=== PATIENT | female | born 1955 | race Hispanic/Latino ===

== ENCOUNTER 2021-02-15 19:15 | Inpatient (IN) | payer MEDICARE ==
[~2021-02-15] VITALS: Ht 149.9 cm; Wt 81.4 kg
[2021-02-15 21:08] LABS: BASOPHILS % (AUTO) 0.5 % (0.0-5.0); EOSINOPHILS % (AUTO) 1.2 % (0.0-8.0); HEMATOCRIT 35.6 % (36-48); LYMPHOCYTES % (AUTO) 16.9 % (21.0-51.0); MEAN CORPUSCULAR HEMOGLOBIN 29.4 pg (27.0-33.0); MEAN CORPUSCULAR HGB CONC 32.9 g/dL (32.0-36.0); MEAN CORPUSCULAR VOLUME 89.4 fL (79-99); MONOCYTES % (AUTO) 8.5 % (3.0-13.0); NEUTROPHILS % (AUTO) 72.4 % (40.0-77.0); PLATELET COUNT (AUTO) 375 K/uL (130-400); RED BLOOD CELL COUNT(AUTO) 3.98 MIL/uL (4.00-5.50); RED CELL DISTRIBUTION WIDTH 12.8 % (11.0-15.5); WHITE BLOOD COUNT (AUTO) 11.1 K/uL (4.8-10.8)
[2021-02-15 21:10] LABS: APPEARANCE,URINE Clear (CLEAR); BILIRUBIN,URINE Negative (NEGATIVE); COLOR,URINE Yellow (YELLOW); GLUCOSE, URINE (UA) Negative (NEGATIVE); KETONES,URINE Negative (NEGATIVE); LEUKOCYTE ESTERASE ,URINE Negative (NEGATIVE); NITRATE,URINE Negative (NEGATIVE); OCCULT BLOOD,URINE Negative (NEGATIVE); PH,URINE 5.5 (5.0-8.0); PROTEIN,URINE 300 mg/dL (NEGATIVE); UROBILINOGEN,URINE 0.2 mg/dL (0.2-1.0)
[2021-02-15 21:12] LABS: CREATININE 2.4 mg/dL (0.5-1.5)
[2021-02-15 21:14] LABS: INR 1.08 (0.85-1.15); PROTHROMBIN TIME 11.7 SEC (9.6-11.6)
[2021-02-15 21:16] LABS: PARTIAL THROMBOPLASTIN TIME 23.6 SEC (26.3-35.5)
[2021-02-15 21:22] LABS: BILIRUBIN,TOTAL 0.3 mg/dL (0.2-1.0); MAGNESIUM 1.6 mg/dL (1.80-2.40); TOTAL PROTEIN, SERUM 8.1 g/dL (6.0-8.3)
[2021-02-15 21:31] LABS: BACTERIA,URINE Few /HPF (None Seen); MUCUS,URINE Few LPF (None Seen); SQUAMOUS EPITHELIAL CELL,UR Few /HPF (0-2)
[2021-02-15] MEDS ORDERED: CEFTRIAXONE SODIUM 1 GM ONE (23:18)
[2021-02-16] MEDS ORDERED: HYDRALAZINE HCL 20 MG/ML VIAL ONE (01:15)
[2021-02-16] MEDS: SODIUM CHLORIDE 0.9% 1000ML 1,000 ML IV SCH ×2 (02:45→12:45)
[2021-02-16] MEDS ORDERED: ONDANSETRON HCL 4 MG/2 ML VIAL IV PRN (02:45)
[2021-02-16] MEDS ORDERED: ACETAMINOPHEN 325 MG TAB PO PRN ×2 (02:45)
[2021-02-16] MEDS ORDERED: MORPHINE SULFATE 2 MG/ML 1ML SYG IV PRN (02:45)
[2021-02-16 04:00] VITALS: BP 166/78
[2021-02-16] MEDS ORDERED: CEFTRIAXONE SODIUM 1 GM IVP SCH ×2 (04:45→10:15)
[2021-02-16] MEDS ORDERED: SODIUM CHLORIDE 0.9% 1000ML 1,000 ML IV SCH (04:45)
[2021-02-16] MEDS ORDERED: CEFTRIAXONE SODIUM 1 GM ONE (04:49)
[2021-02-16] MEDS: MAGNESIUM 2GM PREMIX 50ML 50 ML IV PRN (04:53)
[2021-02-16] MEDS ORDERED: CEFAZOLIN SODIUM 1 GM VIAL IVP SCH (05:00)
[2021-02-16] MEDS ORDERED: CEFAZOLIN SODIUM 1 GM VIAL ONE (05:06)
[2021-02-16] MEDS ORDERED: MECLIZINE HCL 12.5 MG TABLET PO PRN (05:15)
[2021-02-16 05:53] LABS: HEMATOCRIT 35.2 % (36-48); MEAN CORPUSCULAR HEMOGLOBIN 29.5 pg (27.0-33.0); MEAN CORPUSCULAR HGB CONC 33.2 g/dL (32.0-36.0); MEAN CORPUSCULAR VOLUME 88.7 fL (79-99); PLATELET COUNT (AUTO) 374 K/uL (130-400); RED BLOOD CELL COUNT(AUTO) 3.97 MIL/uL (4.00-5.50); WHITE BLOOD COUNT (AUTO) 12.6 K/uL (4.8-10.8)
[2021-02-16 05:57] LABS: CREATININE 2.2 mg/dL (0.5-1.5); MAGNESIUM 1.6 mg/dL (1.80-2.40); POTASSIUM 4.1 mmol/L (3.5-5.1)
[2021-02-16 06:09] LABS: BAND NEUTROPHILS % (MANUAL) 2 % (0-2); BASOPHILS % (MANUAL) 1 % (0-2); EOSINOPHILS % (MANUAL) 1 % (1-6); LYMPHOCYTES % (MANUAL) 14 % (22-44); MONOCYTES % (MANUAL) 3 % (2-9); REACTIVE LYMPHOCYTES 4 % (0-0); SEGMENTED NEUTROPHILS % 75 % (40-70)
[2021-02-16 06:10] LABS: MAN.DIFF COMMENT-IMPRESSION MANUAL DIFFERENTIAL; PLATELET MORPHOLOGY COMMENT ADEQUATE
[2021-02-16 08:00] VITALS: BP 143/75
[2021-02-16] MEDS ORDERED: FAMOTIDINE/PF 20 MG/2 ML VIAL IV SCH (09:00)
[2021-02-16 10:50] LABS: HEMOGLOBIN A1C 8.6 % (4.0-6.0)
[2021-02-16] MEDS: INSULIN HUMULIN R 100 UNIT/ML 3ML SQ SCH ×3 (11:30→21:12)
[2021-02-16 12:17] VITALS: BP 168/95
[2021-02-16] MEDS ORDERED: VANCOMYCIN PROTOCOL PER PHARMACY IV SCH (13:30)
[2021-02-16] MEDS ORDERED: COMPOUND IV REFRIGERATED 1 EACH IVSOLN MISC PRN (13:30)
[2021-02-16] MEDS: CEFEPIME HCL 2 GM VIAL IVP SCH ×2 (14:31→21:46)
[2021-02-16] MEDS ORDERED: MONT10TA32 PO (14:54)
[2021-02-16] MEDS ORDERED: LOSA100T58 PO (14:54)
[2021-02-16] MEDS ORDERED: ATOR20TA65 PO (14:54)
[2021-02-16] MEDS ORDERED: INSU300I SQ (14:54)
[2021-02-16] MEDS ORDERED: TORS20TA4 PO (14:54)
[2021-02-16] MEDS ORDERED: INSU100V SQ (14:54)
[2021-02-16] MEDS ORDERED: SEMA1PEN3 SQ (14:54)
[2021-02-16] MEDS ORDERED: FENO160T16 PO (14:54)
[2021-02-16] MEDS ORDERED: CARV25TA PO (14:54)
[2021-02-16] MEDS ORDERED: BACL10TA PO (14:54)
[2021-02-16] MEDS ORDERED: ACET-3194 PO (14:54)
[2021-02-16] MEDS: VANCOMYCIN 1.25 GM in SODIUM CHLORIDE 0.9% 250 ML IV SCH (14:57)
[2021-02-16 16:00] VITALS: BP 182/89
[2021-02-16] MEDS ORDERED: ACETAMINOPHEN EXTENDED RELEASE 650 MG TABLET PO PRN (17:00)
[2021-02-16 19:40] VITALS: BP 155/65
[2021-02-17] VITALS (8 sets, daily range): BP systolic 149–181; BP diastolic 75–91
[2021-02-17 00:25] LABS: PROTEIN,URINE RANDOM 136.5 mg/dL (0-11.9)
[2021-02-17] MEDS: SODIUM CHLORIDE 0.9% 1000ML 1,000 ML IV SCH ×3 (02:58→17:46)
[2021-02-17 04:56] LABS: BASOPHILS % (AUTO) 0.8 % (0.0-5.0); EOSINOPHILS % (AUTO) 1.4 % (0.0-8.0); HEMATOCRIT 33.6 % (36-48); LYMPHOCYTES % (AUTO) 15.8 % (21.0-51.0); MEAN CORPUSCULAR HEMOGLOBIN 28.9 pg (27.0-33.0); MEAN CORPUSCULAR HGB CONC 32.1 g/dL (32.0-36.0); MEAN CORPUSCULAR VOLUME 89.8 fL (79-99); MONOCYTES % (AUTO) 13.1 % (3.0-13.0); NEUTROPHILS % (AUTO) 68.6 % (40.0-77.0); PLATELET COUNT (AUTO) 325 K/uL (130-400); RED BLOOD CELL COUNT(AUTO) 3.74 MIL/uL (4.00-5.50); RED CELL DISTRIBUTION WIDTH 13.2 % (11.0-15.5); WHITE BLOOD COUNT (AUTO) 9.1 K/uL (4.8-10.8)
[2021-02-17] MEDS: CEFEPIME HCL 2 GM VIAL IVP SCH ×3 (05:05→20:38)
[2021-02-17 05:11] LABS: ALBUMIN 3.2 g/dL (3.5-5.0); BILIRUBIN,TOTAL 0.2 mg/dL (0.2-1.0); CREATININE 2.3 mg/dL (0.5-1.5); POTASSIUM 4.2 mmol/L (3.5-5.1); TOTAL PROTEIN, SERUM 6.9 g/dL (6.0-8.3)
[2021-02-17] MEDS: INSULIN HUMULIN R 100 UNIT/ML 3ML SQ SCH ×4 (06:51→20:39)
[2021-02-17] MEDS: ATORVASTATIN CALCIUM 20 MG TABLET PO SCH (09:17)
[2021-02-17] MEDS: FAMOTIDINE/PF 20 MG/2 ML VIAL IV SCH (09:17)
[2021-02-17] MEDS: LOSARTAN 100 MG TABLET PO SCH (09:17)
[2021-02-17] MEDS: MONTELUKAST SODIUM 10 MG TAB PO SCH (09:17)
[2021-02-17] MEDS: TORSEMIDE 20 MG TAB PO SCH (09:17)
[2021-02-17] MEDS: FENOFIBRATE 160 MG PO SCH (09:18)
[2021-02-17] MEDS ORDERED: CARVEDILOL 25 MG TABLET PO ONE (22:25)
[2021-02-17] MEDS ORDERED: CARVEDILOL 12.5 MG TABLET PO ONE (22:30)
[2021-02-18] MEDS: SODIUM CHLORIDE 0.9% 1000ML 1,000 ML IV SCH (02:34)
[2021-02-18 03:49] VITALS: BP 149/71
[2021-02-18] MEDS: CEFEPIME HCL 2 GM VIAL IVP SCH ×3 (04:13→20:39)
[2021-02-18 05:41] LABS: BASOPHILS % (AUTO) 0.7 % (0.0-5.0); EOSINOPHILS % (AUTO) 3.1 % (0.0-8.0); HEMATOCRIT 30.4 % (36-48); LYMPHOCYTES % (AUTO) 17.1 % (21.0-51.0); MEAN CORPUSCULAR HEMOGLOBIN 29.3 pg (27.0-33.0); MEAN CORPUSCULAR HGB CONC 32.2 g/dL (32.0-36.0); MONOCYTES % (AUTO) 13.3 % (3.0-13.0); NEUTROPHILS % (AUTO) 65.4 % (40.0-77.0); PLATELET COUNT (AUTO) 263 K/uL (130-400); RED BLOOD CELL COUNT(AUTO) 3.34 MIL/uL (4.00-5.50); RED CELL DISTRIBUTION WIDTH 13.1 % (11.0-15.5); WHITE BLOOD COUNT (AUTO) 8.1 K/uL (4.8-10.8)
[2021-02-18 06:00] LABS: CREATININE 2.6 mg/dL (0.5-1.5); MAGNESIUM 1.8 mg/dL (1.80-2.40); POTASSIUM 4.3 mmol/L (3.5-5.1)
[2021-02-18] MEDS: INSULIN HUMULIN R 100 UNIT/ML 3ML SQ SCH ×7 (06:10→20:41)
[2021-02-18] MEDS: HEPARIN SODIUM 5000UNIT/ML 1ML VIAL SQ SCH ×3 (06:12→20:40)
[2021-02-18] MEDS: INSULIN GLARGINE 100 UNITS/ML 10 ML VIAL SQ SCH (06:52)
[2021-02-18 07:00] VITALS: BP 149/75
[2021-02-18] MEDS: FENOFIBRATE 160 MG PO SCH (10:30)
[2021-02-18] MEDS: FAMOTIDINE/PF 20 MG/2 ML VIAL IV SCH (10:30)
[2021-02-18] MEDS: LOSARTAN 100 MG TABLET PO SCH (10:30)
[2021-02-18] MEDS: TORSEMIDE 20 MG TAB PO SCH (10:30)
[2021-02-18] MEDS: MONTELUKAST SODIUM 10 MG TAB PO SCH (10:30)
[2021-02-18] MEDS: ATORVASTATIN CALCIUM 20 MG TABLET PO SCH (10:30)
[2021-02-18 11:45] VITALS: BP 160/78
[2021-02-18] MEDS: VANCOMYCIN 1.25 GM in SODIUM CHLORIDE 0.9% 250 ML IV SCH (13:48)
[2021-02-18] MEDS: MAGNESIUM 2GM PREMIX 50ML 50 ML IV PRN (15:22)
[2021-02-18 16:00] VITALS: BP 168/86
[2021-02-18 20:10] VITALS: BP 179/80
[2021-02-18] MEDS: CARVEDILOL 12.5 MG TABLET PO SCH ×2 (20:39→22:25)
[2021-02-18] MEDS ORDERED: HYDRALAZINE HCL 20 MG/ML VIAL IV SCH (22:30)
[2021-02-18] MEDS ORDERED: DiphenhydrAMINE HCL 50 MG/ML VIAL ONE (23:11)
[2021-02-18] MEDS ORDERED: HYDRALAZINE HCL 20 MG/ML VIAL ONE (23:12)
[2021-02-18 23:45] VITALS: BP 179/96
[2021-02-19] VITALS (7 sets, daily range): BP systolic 125–165; BP diastolic 69–94
[2021-02-19 00:37] LABS: CREATINE KINASE, TOTAL 87 U/L (21-232); MYOGLOBIN 121 ng/mL (10-92); TROPONIN I < 0.04 ng/mL (0.00-0.06)
[2021-02-19 05:32] LABS: BASOPHILS % (AUTO) 0.6 % (0.0-5.0); EOSINOPHILS % (AUTO) 2.4 % (0.0-8.0); LYMPHOCYTES % (AUTO) 13.8 % (21.0-51.0); MEAN CORPUSCULAR HEMOGLOBIN 28.4 pg (27.0-33.0); MEAN CORPUSCULAR HGB CONC 32.4 g/dL (32.0-36.0); MEAN CORPUSCULAR VOLUME 87.5 fL (79-99); MONOCYTES % (AUTO) 12.5 % (3.0-13.0); NEUTROPHILS % (AUTO) 70.4 % (40.0-77.0); PLATELET COUNT (AUTO) 303 K/uL (130-400); RED BLOOD CELL COUNT(AUTO) 3.77 MIL/uL (4.00-5.50); RED CELL DISTRIBUTION WIDTH 12.7 % (11.0-15.5)
[2021-02-19] MEDS: CEFEPIME HCL 2 GM VIAL IVP SCH ×3 (05:34→20:39)
[2021-02-19] MEDS: HEPARIN SODIUM 5000UNIT/ML 1ML VIAL SQ SCH ×3 (05:35→20:53)
[2021-02-19 05:46] LABS: CREATININE 2.8 mg/dL (0.5-1.5); MAGNESIUM 2.3 mg/dL (1.80-2.40); POTASSIUM 4.3 mmol/L (3.5-5.1)
[2021-02-19] MEDS: INSULIN HUMULIN R 100 UNIT/ML 3ML SQ SCH ×7 (05:51→20:54)
[2021-02-19] MEDS: INSULIN GLARGINE 100 UNITS/ML 10 ML VIAL SQ SCH (06:17)
[2021-02-19] MEDS: FENOFIBRATE 160 MG PO SCH (08:32)
[2021-02-19] MEDS: FAMOTIDINE/PF 20 MG/2 ML VIAL IV SCH (09:14)
[2021-02-19] MEDS: MONTELUKAST SODIUM 10 MG TAB PO SCH (09:15)
[2021-02-19] MEDS: TORSEMIDE 20 MG TAB PO SCH (09:15)
[2021-02-19] MEDS: CARVEDILOL 12.5 MG TABLET PO SCH ×2 (09:15→20:40)
[2021-02-19] MEDS: LOSARTAN 100 MG TABLET PO SCH (09:15)
[2021-02-19] MEDS: ATORVASTATIN CALCIUM 20 MG TABLET PO SCH (09:15)
[2021-02-20 04:00] VITALS: BP 141/75
[2021-02-20] MEDS: CEFEPIME HCL 2 GM VIAL IVP SCH ×3 (05:14→21:08)
[2021-02-20] MEDS: HEPARIN SODIUM 5000UNIT/ML 1ML VIAL SQ SCH ×3 (05:19→21:17)
[2021-02-20 05:21] LABS: BASOPHILS % (AUTO) 0.7 % (0.0-5.0); EOSINOPHILS % (AUTO) 2.5 % (0.0-8.0); HEMATOCRIT 31.4 % (36-48); LYMPHOCYTES % (AUTO) 15.3 % (21.0-51.0); MEAN CORPUSCULAR HEMOGLOBIN 28.9 pg (27.0-33.0); MEAN CORPUSCULAR HGB CONC 32.5 g/dL (32.0-36.0); MONOCYTES % (AUTO) 14.2 % (3.0-13.0); NEUTROPHILS % (AUTO) 66.9 % (40.0-77.0); PLATELET COUNT (AUTO) 263 K/uL (130-400); RED BLOOD CELL COUNT(AUTO) 3.53 MIL/uL (4.00-5.50); RED CELL DISTRIBUTION WIDTH 12.9 % (11.0-15.5); WHITE BLOOD COUNT (AUTO) 9.1 K/uL (4.8-10.8)
[2021-02-20] MEDS: INSULIN HUMULIN R 100 UNIT/ML 3ML SQ SCH ×7 (05:25→21:00)
[2021-02-20 05:49] LABS: ALBUMIN 3.1 g/dL (3.5-5.0); BILIRUBIN,TOTAL 0.3 mg/dL (0.2-1.0); CREATININE 3.8 mg/dL (0.5-1.5); POTASSIUM 4.5 mmol/L (3.5-5.1); TOTAL PROTEIN, SERUM 7.1 g/dL (6.0-8.3)
[2021-02-20] MEDS: INSULIN GLARGINE 100 UNITS/ML 10 ML VIAL SQ SCH (06:32)
[2021-02-20 07:30] VITALS: BP 151/75
[2021-02-20] MEDS: FENOFIBRATE 160 MG PO SCH (08:00)
[2021-02-20] MEDS: TORSEMIDE 20 MG TAB PO SCH (10:20)
[2021-02-20] MEDS: ATORVASTATIN CALCIUM 20 MG TABLET PO SCH (10:21)
[2021-02-20] MEDS: CARVEDILOL 12.5 MG TABLET PO SCH ×2 (10:21→21:09)
[2021-02-20] MEDS: MONTELUKAST SODIUM 10 MG TAB PO SCH (10:21)
[2021-02-20] MEDS: LOSARTAN 100 MG TABLET PO SCH (10:21)
[2021-02-20] MEDS: FAMOTIDINE/PF 20 MG/2 ML VIAL IV SCH (10:22)
[2021-02-20 11:00] VITALS: BP 158/83
[2021-02-20] MEDS ORDERED: MORPHINE SULFATE 2 MG/ML 1ML SYG IVP SCH (13:00)
[2021-02-20 13:16] LABS: ALBUMIN 3.4 g/dL (3.5-5.0); BILIRUBIN,TOTAL 0.3 mg/dL (0.2-1.0); POTASSIUM 4.7 mmol/L (3.5-5.1); TOTAL PROTEIN, SERUM 7.8 g/dL (6.0-8.3)
[2021-02-20] MEDS ORDERED: [UNRECOGNIZED DRUG - OTHER] MISC SCH (14:00)
[2021-02-20] MEDS ORDERED: PHARMACY COMMUNICATION MISC SCH (14:30)
[2021-02-20 16:00] VITALS: BP 131/69
[2021-02-20 20:00] VITALS: BP 169/76
[2021-02-20] MEDS ORDERED: COMPOUND IV REFRIGERATED 1 EACH IVSOLN MISC PRN (21:00)
[2021-02-20] MEDS: CLINDAMYCIN 600 MG/D5% WATER 50 ML IV SCH (21:09)
[2021-02-20] MEDS: DAPTOMYCIN 500 MG in SODIUM CHLORIDE 0.9% 50 ML IV SCH (23:35)
[2021-02-21] VITALS (7 sets, daily range): BP systolic 132–163; BP diastolic 63–90
[2021-02-21] MEDS: CLINDAMYCIN 600 MG/D5% WATER 50 ML IV SCH ×2 (03:35→09:38)
[2021-02-21] MEDS: CEFEPIME HCL 2 GM VIAL IVP SCH ×3 (05:23→21:18)
[2021-02-21] MEDS: HEPARIN SODIUM 5000UNIT/ML 1ML VIAL SQ SCH ×3 (05:24→21:31)
[2021-02-21] MEDS: INSULIN HUMULIN R 100 UNIT/ML 3ML SQ SCH ×6 (05:56→21:00)
[2021-02-21 05:58] LABS: BASOPHILS % (AUTO) 0.8 % (0.0-5.0); HEMATOCRIT 31.9 % (36-48); LYMPHOCYTES % (AUTO) 17.9 % (21.0-51.0); MEAN CORPUSCULAR HEMOGLOBIN 29.2 pg (27.0-33.0); MEAN CORPUSCULAR HGB CONC 33.2 g/dL (32.0-36.0); MEAN CORPUSCULAR VOLUME 87.9 fL (79-99); MONOCYTES % (AUTO) 14.1 % (3.0-13.0); NEUTROPHILS % (AUTO) 64.9 % (40.0-77.0); PLATELET COUNT (AUTO) 272 K/uL (130-400); RED BLOOD CELL COUNT(AUTO) 3.63 MIL/uL (4.00-5.50); RED CELL DISTRIBUTION WIDTH 12.7 % (11.0-15.5); WHITE BLOOD COUNT (AUTO) 9.3 K/uL (4.8-10.8)
[2021-02-21 06:20] LABS: CREATININE 4.5 mg/dL (0.5-1.5); POTASSIUM 4.6 mmol/L (3.5-5.1)
[2021-02-21] MEDS: INSULIN GLARGINE 100 UNITS/ML 10 ML VIAL SQ SCH (06:29)
[2021-02-21] MEDS: FENOFIBRATE 160 MG PO SCH (08:00)
[2021-02-21 08:39] LABS: INR 1.13 (0.85-1.15); PROTHROMBIN TIME 12.2 SEC (9.6-11.6)
[2021-02-21 08:40] LABS: PARTIAL THROMBOPLASTIN TIME 26.9 SEC (26.3-35.5)
[2021-02-21] MEDS: ASPIRIN 325MG EC TAB 325 MG TABLET.DR PO SCH (09:39)
[2021-02-21] MEDS: CARVEDILOL 12.5 MG TABLET PO SCH ×2 (09:39→21:18)
[2021-02-21] MEDS: ATORVASTATIN CALCIUM 20 MG TABLET PO SCH (09:39)
[2021-02-21] MEDS: MONTELUKAST SODIUM 10 MG TAB PO SCH (09:39)
[2021-02-21] MEDS: FAMOTIDINE/PF 20 MG/2 ML VIAL IV SCH (09:40)
[2021-02-22 04:00] VITALS: BP 124/80
[2021-02-22] MEDS: HEPARIN SODIUM 5000UNIT/ML 1ML VIAL SQ SCH ×3 (04:26→21:14)
[2021-02-22] MEDS: CEFEPIME HCL 2 GM VIAL IVP SCH ×2 (05:54→13:25)
[2021-02-22] MEDS: INSULIN GLARGINE 100 UNITS/ML 10 ML VIAL SQ SCH (05:57)
[2021-02-22] MEDS: INSULIN HUMULIN R 100 UNIT/ML 3ML SQ SCH ×7 (05:57→21:17)
[2021-02-22] MEDS: FENOFIBRATE 160 MG PO SCH (08:00)
[2021-02-22 08:01] VITALS: BP 121/82
[2021-02-22 08:49] LABS: HEMATOCRIT 32.1 % (36-48); MEAN CORPUSCULAR HEMOGLOBIN 28.8 pg (27.0-33.0); MEAN CORPUSCULAR HGB CONC 32.7 g/dL (32.0-36.0); MEAN CORPUSCULAR VOLUME 88.2 fL (79-99); PLATELET COUNT (AUTO) 261 K/uL (130-400); RED BLOOD CELL COUNT(AUTO) 3.64 MIL/uL (4.00-5.50); RED CELL DISTRIBUTION WIDTH 12.8 % (11.0-15.5); WHITE BLOOD COUNT (AUTO) 8.9 K/uL (4.8-10.8)
[2021-02-22 09:01] LABS: CREATININE 4.6 mg/dL (0.5-1.5); POTASSIUM 4.8 mmol/L (3.5-5.1)
[2021-02-22 09:11] LABS: BASOPHILS % (MANUAL) 1 % (0-2); EOSINOPHILS % (MANUAL) 2 % (1-6); LYMPHOCYTES % (MANUAL) 21 % (22-44); MAN.DIFF COMMENT-IMPRESSION MANUAL DIFFERENTIAL; MONOCYTES % (MANUAL) 10 % (2-9); PLATELET MORPHOLOGY COMMENT ADEQUATE; SEGMENTED NEUTROPHILS % 66 % (40-70)
[2021-02-22] MEDS: FAMOTIDINE/PF 20 MG/2 ML VIAL IV SCH (10:20)
[2021-02-22] MEDS: MONTELUKAST SODIUM 10 MG TAB PO SCH (10:21)
[2021-02-22] MEDS: CARVEDILOL 12.5 MG TABLET PO SCH ×2 (10:21→21:08)
[2021-02-22] MEDS: ATORVASTATIN CALCIUM 20 MG TABLET PO SCH (10:21)
[2021-02-22] MEDS: ASPIRIN 325MG EC TAB 325 MG TABLET.DR PO SCH (10:21)
[2021-02-22 11:13] VITALS: BP 131/76
[2021-02-22 16:26] VITALS: BP 133/80
[2021-02-22 20:03] VITALS: BP 136/69
[2021-02-22] MEDS: DAPTOMYCIN 500 MG in SODIUM CHLORIDE 0.9% 50 ML IV SCH (21:08)
[2021-02-22 23:56] VITALS: BP 169/81
[2021-02-23 03:52] VITALS: BP 136/69
[2021-02-23] MEDS: HEPARIN SODIUM 5000UNIT/ML 1ML VIAL SQ SCH ×3 (05:07→19:58)
[2021-02-23 05:14] LABS: BASOPHILS % (AUTO) 0.6 % (0.0-5.0); EOSINOPHILS % (AUTO) 1.7 % (0.0-8.0); HEMATOCRIT 30.4 % (36-48); LYMPHOCYTES % (AUTO) 12.9 % (21.0-51.0); MEAN CORPUSCULAR HEMOGLOBIN 29.5 pg (27.0-33.0); MEAN CORPUSCULAR HGB CONC 32.2 g/dL (32.0-36.0); MEAN CORPUSCULAR VOLUME 91.6 fL (79-99); NEUTROPHILS % (AUTO) 69.4 % (40.0-77.0); PLATELET COUNT (AUTO) 235 K/uL (130-400); RED BLOOD CELL COUNT(AUTO) 3.32 MIL/uL (4.00-5.50)
[2021-02-23 05:36] LABS: ALBUMIN 2.9 g/dL (3.5-5.0); BILIRUBIN,TOTAL 0.2 mg/dL (0.2-1.0); CREATININE 4.9 mg/dL (0.5-1.5); POTASSIUM 4.9 mmol/L (3.5-5.1)
[2021-02-23] MEDS: INSULIN HUMULIN R 100 UNIT/ML 3ML SQ SCH ×7 (05:41→21:09)
[2021-02-23] MEDS: INSULIN GLARGINE 100 UNITS/ML 10 ML VIAL SQ SCH (06:22)
[2021-02-23 07:30] VITALS: BP 157/84
[2021-02-23] MEDS: FENOFIBRATE 160 MG PO SCH (08:00)
[2021-02-23] MEDS: ASPIRIN 325MG EC TAB 325 MG TABLET.DR PO SCH (09:26)
[2021-02-23] MEDS: FAMOTIDINE/PF 20 MG/2 ML VIAL IV SCH (09:26)
[2021-02-23] MEDS: CEFEPIME HCL 2 GM VIAL IVP SCH (09:26)
[2021-02-23] MEDS: CARVEDILOL 12.5 MG TABLET PO SCH ×2 (09:27→19:53)
[2021-02-23] MEDS: MONTELUKAST SODIUM 10 MG TAB PO SCH (09:27)
[2021-02-23] MEDS: ATORVASTATIN CALCIUM 20 MG TABLET PO SCH (09:27)
[2021-02-23 11:00] VITALS: BP 151/72
[2021-02-23 15:30] VITALS: BP 149/74
[2021-02-23] MEDS: AMLODIPINE BESYLATE 5 MG TAB PO SCH (15:58)
[2021-02-23 19:00] VITALS: BP 143/87
[2021-02-23 23:00] VITALS: BP 158/88
[2021-02-24 03:00] VITALS: BP 155/76
[2021-02-24 04:46] LABS: BASOPHILS % (AUTO) 0.6 % (0.0-5.0); EOSINOPHILS % (AUTO) 1.9 % (0.0-8.0); HEMATOCRIT 31.9 % (36-48); LYMPHOCYTES % (AUTO) 12.9 % (21.0-51.0); MEAN CORPUSCULAR HEMOGLOBIN 29.3 pg (27.0-33.0); MEAN CORPUSCULAR HGB CONC 32.3 g/dL (32.0-36.0); MEAN CORPUSCULAR VOLUME 90.9 fL (79-99); MONOCYTES % (AUTO) 14.4 % (3.0-13.0); NEUTROPHILS % (AUTO) 69.9 % (40.0-77.0); PLATELET COUNT (AUTO) 245 K/uL (130-400); RED BLOOD CELL COUNT(AUTO) 3.51 MIL/uL (4.00-5.50); RED CELL DISTRIBUTION WIDTH 12.9 % (11.0-15.5); WHITE BLOOD COUNT (AUTO) 10.6 K/uL (4.8-10.8)
[2021-02-24 05:09] LABS: BILIRUBIN,TOTAL 0.2 mg/dL (0.2-1.0); CREATININE 4.5 mg/dL (0.5-1.5); POTASSIUM 4.7 mmol/L (3.5-5.1); TOTAL PROTEIN, SERUM 7.4 g/dL (6.0-8.3)
[2021-02-24] MEDS: HEPARIN SODIUM 5000UNIT/ML 1ML VIAL SQ SCH ×3 (05:56→21:47)
[2021-02-24] MEDS: INSULIN GLARGINE 100 UNITS/ML 10 ML VIAL SQ SCH (06:12)
[2021-02-24] MEDS: INSULIN HUMULIN R 100 UNIT/ML 3ML SQ SCH ×7 (06:13→22:11)
[2021-02-24] MEDS ORDERED: LACTULOSE 20 GM/30 ML UDCUP PO PRN (07:45)
[2021-02-24 08:00] VITALS: BP 148/79
[2021-02-24] MEDS: FENOFIBRATE 160 MG PO SCH (08:00)
[2021-02-24] MEDS: CARVEDILOL 12.5 MG TABLET PO SCH ×2 (08:34→20:30)
[2021-02-24] MEDS: ASPIRIN 325MG EC TAB 325 MG TABLET.DR PO SCH (08:34)
[2021-02-24] MEDS: MONTELUKAST SODIUM 10 MG TAB PO SCH (08:34)
[2021-02-24] MEDS: CEFEPIME HCL 2 GM VIAL IVP SCH (08:34)
[2021-02-24] MEDS: FAMOTIDINE/PF 20 MG/2 ML VIAL IV SCH (08:34)
[2021-02-24] MEDS: AMLODIPINE BESYLATE 5 MG TAB PO SCH (08:35)
[2021-02-24] MEDS: ATORVASTATIN CALCIUM 20 MG TABLET PO SCH (08:35)
[2021-02-24 12:00] VITALS: BP 144/79
[2021-02-24 16:00] VITALS: BP 151/77
[2021-02-24 20:00] VITALS: BP 138/73
[2021-02-24] MEDS: DAPTOMYCIN 500 MG in SODIUM CHLORIDE 0.9% 50 ML IV SCH (21:46)
[2021-02-25] VITALS: BP 133/68
[2021-02-25 04:00] VITALS: BP 148/75
[2021-02-25] MEDS: HEPARIN SODIUM 5000UNIT/ML 1ML VIAL SQ SCH ×3 (04:24→21:32)
[2021-02-25 05:40] LABS: BASOPHILS % (AUTO) 0.4 % (0.0-5.0); EOSINOPHILS % (AUTO) 2.7 % (0.0-8.0); LYMPHOCYTES % (AUTO) 13.9 % (21.0-51.0); MEAN CORPUSCULAR HEMOGLOBIN 29.1 pg (27.0-33.0); MEAN CORPUSCULAR HGB CONC 32.7 g/dL (32.0-36.0); MONOCYTES % (AUTO) 13.8 % (3.0-13.0); NEUTROPHILS % (AUTO) 68.8 % (40.0-77.0); PLATELET COUNT (AUTO) 103 K/uL (130-400); RED BLOOD CELL COUNT(AUTO) 3.37 MIL/uL (4.00-5.50); RED CELL DISTRIBUTION WIDTH 12.6 % (11.0-15.5); WHITE BLOOD COUNT (AUTO) 9.4 K/uL (4.8-10.8)
[2021-02-25 05:55] LABS: ALBUMIN 2.8 g/dL (3.5-5.0); BILIRUBIN,TOTAL 0.2 mg/dL (0.2-1.0); CREATININE 4.2 mg/dL (0.5-1.5); POTASSIUM 4.9 mmol/L (3.5-5.1); TOTAL PROTEIN, SERUM 6.9 g/dL (6.0-8.3)
[2021-02-25] MEDS: INSULIN HUMULIN R 100 UNIT/ML 3ML SQ SCH ×7 (06:00→21:31)
[2021-02-25] MEDS: INSULIN GLARGINE 100 UNITS/ML 10 ML VIAL SQ SCH (06:44)
[2021-02-25 07:00] VITALS: BP 170/86
[2021-02-25] MEDS: FENOFIBRATE 160 MG PO SCH (08:00)
[2021-02-25 11:00] VITALS: BP 162/87
[2021-02-25] MEDS: CARVEDILOL 12.5 MG TABLET PO SCH ×2 (11:56→21:30)
[2021-02-25] MEDS: CEFEPIME HCL 2 GM VIAL IVP SCH (11:56)
[2021-02-25] MEDS: FAMOTIDINE/PF 20 MG/2 ML VIAL IV SCH (11:57)
[2021-02-25] MEDS: ASPIRIN 325MG EC TAB 325 MG TABLET.DR PO SCH (11:57)
[2021-02-25] MEDS: AMLODIPINE BESYLATE 5 MG TAB PO SCH (11:57)
[2021-02-25] MEDS: MONTELUKAST SODIUM 10 MG TAB PO SCH (11:57)
[2021-02-25] MEDS: ATORVASTATIN CALCIUM 20 MG TABLET PO SCH (11:57)
[2021-02-25 16:00] VITALS: BP 149/70
[2021-02-25 20:00] VITALS: BP 157/86
[2021-02-26] VITALS (7 sets, daily range): BP systolic 132–164; BP diastolic 69–78
[2021-02-26 04:03] LABS: BASOPHILS % (AUTO) 0.6 % (0.0-5.0); EOSINOPHILS % (AUTO) 2.8 % (0.0-8.0); HEMATOCRIT 29.7 % (36-48); LYMPHOCYTES % (AUTO) 16.3 % (21.0-51.0); MEAN CORPUSCULAR HEMOGLOBIN 28.4 pg (27.0-33.0); MEAN CORPUSCULAR HGB CONC 32.3 g/dL (32.0-36.0); MEAN CORPUSCULAR VOLUME 87.9 fL (79-99); MONOCYTES % (AUTO) 12.6 % (3.0-13.0); NEUTROPHILS % (AUTO) 67.4 % (40.0-77.0); PLATELET COUNT (AUTO) 231 K/uL (130-400); RED BLOOD CELL COUNT(AUTO) 3.38 MIL/uL (4.00-5.50); RED CELL DISTRIBUTION WIDTH 12.6 % (11.0-15.5); WHITE BLOOD COUNT (AUTO) 9.3 K/uL (4.8-10.8)
[2021-02-26 04:22] LABS: CREATININE 4.3 mg/dL (0.5-1.5); POTASSIUM 4.7 mmol/L (3.5-5.1)
[2021-02-26] MEDS: HEPARIN SODIUM 5000UNIT/ML 1ML VIAL SQ SCH ×2 (05:03→12:17)
[2021-02-26] MEDS: INSULIN HUMULIN R 100 UNIT/ML 3ML SQ SCH ×7 (06:04→19:59)
[2021-02-26] MEDS: INSULIN GLARGINE 100 UNITS/ML 10 ML VIAL SQ SCH (06:21)
[2021-02-26] MEDS: FENOFIBRATE 160 MG PO SCH (08:00)
[2021-02-26] MEDS: MONTELUKAST SODIUM 10 MG TAB PO SCH (09:12)
[2021-02-26] MEDS: CEFEPIME HCL 2 GM VIAL IVP SCH (09:12)
[2021-02-26] MEDS: ATORVASTATIN CALCIUM 20 MG TABLET PO SCH (09:12)
[2021-02-26] MEDS: ASPIRIN 325MG EC TAB 325 MG TABLET.DR PO SCH (09:12)
[2021-02-26] MEDS: FAMOTIDINE/PF 20 MG/2 ML VIAL IV SCH (09:12)
[2021-02-26] MEDS: CARVEDILOL 12.5 MG TABLET PO SCH ×2 (09:13→19:58)
[2021-02-26] MEDS: AMLODIPINE BESYLATE 5 MG TAB PO SCH (09:13)
[2021-02-26] MEDS: DAPTOMYCIN 500 MG in SODIUM CHLORIDE 0.9% 50 ML IV SCH (19:29)
== END 2021-02-26 20:02 | DRG 682 ==
LOC: EDH 19:15 → EDHIP 02-16 02:38 → 3CH 02-16 03:33 → 4CH 02-23 17:30
PROVIDERS: ADMIT Internal Medicine; ATTEND Internal Medicine
PROC: 02HV33Z Insertion of Infusion Device into Superior Vena Cava, Percutaneous Approach (ICD-10-PCS; principal; 2021-02-16)
DX: N17.9 Acute kidney failure, unspecified (principal); G92 Toxic encephalopathy; H70.009 Acute mastoiditis without complications, unspecified ear; H70.002 Acute mastoiditis without complications, left ear; I12.9 Hypertensive chronic kidney disease with stage 1 through stage 4 chronic kidney disease, or unspecified chronic kidney disease; N12 Tubulo-interstitial nephritis, not specified as acute or chronic; N18.4 Chronic kidney disease, stage 4 (severe); I16.0 Hypertensive urgency; E11.22 Type 2 diabetes mellitus with diabetic chronic kidney disease; E66.01 Morbid (severe) obesity due to excess calories; H81.399 Other peripheral vertigo, unspecified ear; Z68.36 Body mass index [BMI] 36.0-36.9, adult; D69.6 Thrombocytopenia, unspecified; E11.319 Type 2 diabetes mellitus with unspecified diabetic retinopathy without macular edema; E11.42 Type 2 diabetes mellitus with diabetic polyneuropathy; E11.65 Type 2 diabetes mellitus with hyperglycemia; E78.5 Hyperlipidemia, unspecified; E83.42 Hypomagnesemia; J44.9 Chronic obstructive pulmonary disease, unspecified; K72.90 Hepatic failure, unspecified without coma; K74.60 Unspecified cirrhosis of liver; E11.649 Type 2 diabetes mellitus with hypoglycemia without coma; L98.429 Non-pressure chronic ulcer of back with unspecified severity; Z79.4 Long term (current) use of insulin; Z83.3 Family history of diabetes mellitus; Z85.3 Personal history of malignant neoplasm of breast; Z85.43 Personal history of malignant neoplasm of ovary; Z90.710 Acquired absence of both cervix and uterus; Z90.49 Acquired absence of other specified parts of digestive tract; Z88.8 Allergy status to other drugs, medicaments and biological substances
CPT/HCPCS: 36415; 70450; 70551; 71045; 76770; 80048; 80053; 80202; 81001; 82550; 82570; 82948; 83036; 83735; 83874; 84145; 84156; 84443; 84484; 85025; 85610; 85651; 85730; 86160; 86255; 87040; 87088; 93005; 97039; C1894; G0378; J0360; J0690; J0692; J0696; J0878; J1200; J1644; J1815; J2405; J3370; J3475; J3490; J7030; J7050